=== PATIENT | female | born 1945 ===

== ENCOUNTER 2020-04-19 11:59 | Outpatient (CLI) | payer OTHER | END 2020-04-19 18:00 | disposition home or self-care (01) | LOC: PPH VACUNA 11:59 | PROVIDERS: ATTEND Emergency Medicine Pediatric Emergency Medicine | DX: Z23 Encounter for immunization (principal) ==

== ENCOUNTER 2020-05-10 04:17 | Outpatient (CLI) | payer OTHER | END 2020-05-10 23:50 | disposition home or self-care (01) | LOC: PPH VACUNA 04:17 | PROVIDERS: ATTEND Emergency Medicine Pediatric Emergency Medicine | DX: Z23 Encounter for immunization (principal) ==

== ENCOUNTER → 2020-08-15 06:54 | Outpatient (CLI) | payer OTHER | END | disposition home or self-care (01) | LOC: LAB 06:54 | PROVIDERS: ATTEND Internal Medicine | DX: D64.89 Other specified anemias (principal); Z13.1 Encounter for screening for diabetes mellitus; E78.2 Mixed hyperlipidemia; R97.0 Elevated carcinoembryonic antigen [CEA]; E11.65 Type 2 diabetes mellitus with hyperglycemia; N39.0 Urinary tract infection, site not specified; D11.0 Benign neoplasm of parotid gland; E56.8 Deficiency of other vitamins; E55.9 Vitamin D deficiency, unspecified; K51.511 Left sided colitis with rectal bleeding; M05.741 Rheumatoid arthritis with rheumatoid factor of right hand without organ or systems involvement; M06.89 Other specified rheumatoid arthritis, multiple sites; M32.8 Other forms of systemic lupus erythematosus; D44.0 Neoplasm of uncertain behavior of thyroid gland; D68.8 Other specified coagulation defects; Z12.11 Encounter for screening for malignant neoplasm of colon; E03.8 Other specified hypothyroidism ==

== ENCOUNTER → 2020-08-15 | Outpatient (CLI) | payer OTHER | END | disposition home or self-care (01) | LOC: MAMO-SONO 11:03 | PROVIDERS: ATTEND Internal Medicine | DX: N64.59 Other signs and symptoms in breast (principal); Z12.31 Encounter for screening mammogram for malignant neoplasm of breast; N64.4 Mastodynia ==

== ENCOUNTER 2020-08-24 07:14 | Outpatient (CLI) | payer OTHER | END 2020-08-24 07:19 | disposition home or self-care (01) | LOC: NUCLEAR 07:14 | PROVIDERS: ATTEND Internal Medicine | DX: I20.0 Unstable angina (principal) | CPT/HCPCS: 78452; 93017; A9500 ==

== ENCOUNTER 2021-01-28 08:00 | Outpatient (CLI) | payer OTHER | END 2021-01-28 08:30 | disposition home or self-care (01) | LOC: PPH VACUNA 08:00 | PROVIDERS: ATTEND Emergency Medicine Pediatric Emergency Medicine | DX: Z23 Encounter for immunization (principal) ==

== ENCOUNTER 2021-01-31 08:00 | Outpatient (CLI) | payer OTHER | END 2021-01-31 08:30 | disposition home or self-care (01) | LOC: PPH VACUNA 08:00 | PROVIDERS: ATTEND Emergency Medicine Pediatric Emergency Medicine | DX: Z23 Encounter for immunization (principal) ==

== ENCOUNTER → 2021-02-05 08:07 | Outpatient (CLI) | payer OTHER | END | disposition home or self-care (01) | LOC: LAB 08:07 | PROVIDERS: ATTEND Emergency Medicine | DX: J11.1 Influenza due to unidentified influenza virus with other respiratory manifestations (principal) ==

== ENCOUNTER 2021-08-27 06:41 | Outpatient (CLI) | payer OTHER | END 2021-08-27 06:42 | disposition home or self-care (01) | LOC: LAB 06:41 | DX: D64.89 Other specified anemias (principal); Z13.1 Encounter for screening for diabetes mellitus; E78.2 Mixed hyperlipidemia; R97.0 Elevated carcinoembryonic antigen [CEA]; E11.65 Type 2 diabetes mellitus with hyperglycemia; N39.0 Urinary tract infection, site not specified; E56.8 Deficiency of other vitamins; E55.9 Vitamin D deficiency, unspecified; K51.511 Left sided colitis with rectal bleeding; M05.741 Rheumatoid arthritis with rheumatoid factor of right hand without organ or systems involvement; M06.9 Rheumatoid arthritis, unspecified; D44.0 Neoplasm of uncertain behavior of thyroid gland; D68.8 Other specified coagulation defects; Z12.11 Encounter for screening for malignant neoplasm of colon; E03.9 Hypothyroidism, unspecified ==

== ENCOUNTER 2021-08-29 07:47 | Outpatient (CLI) | payer OTHER | END 2021-08-29 08:06 | disposition home or self-care (01) | LOC: TOM 07:47 | DX: K57.92 Diverticulitis of intestine, part unspecified, without perforation or abscess without bleeding (principal) ==

== ENCOUNTER 2021-12-09 07:37 | Outpatient (CLI) | payer OTHER | END 2021-12-09 07:45 | disposition home or self-care (01) | LOC: LAB 07:37 | DX: D64.89 Other specified anemias (principal); E78.2 Mixed hyperlipidemia; R97.0 Elevated carcinoembryonic antigen [CEA]; E11.65 Type 2 diabetes mellitus with hyperglycemia; N39.0 Urinary tract infection, site not specified; E56.8 Deficiency of other vitamins; E55.9 Vitamin D deficiency, unspecified; K51.511 Left sided colitis with rectal bleeding; M05.741 Rheumatoid arthritis with rheumatoid factor of right hand without organ or systems involvement; M06.9 Rheumatoid arthritis, unspecified; D44.0 Neoplasm of uncertain behavior of thyroid gland; D68.8 Other specified coagulation defects; E03.9 Hypothyroidism, unspecified; Z13.1 Encounter for screening for diabetes mellitus; M32.9 Systemic lupus erythematosus, unspecified; Z12.11 Encounter for screening for malignant neoplasm of colon ==

== ENCOUNTER → 2022-07-14 07:19 | Outpatient (CLI) | payer OTHER | END | disposition home or self-care (01) | LOC: LAB 07:19 | DX: D64.89 Other specified anemias (principal); Z13.220 Encounter for screening for lipoid disorders; R97.0 Elevated carcinoembryonic antigen [CEA]; E11.69 Type 2 diabetes mellitus with other specified complication; N39.0 Urinary tract infection, site not specified; D11.0 Benign neoplasm of parotid gland; E56.8 Deficiency of other vitamins; E55.9 Vitamin D deficiency, unspecified; K51.511 Left sided colitis with rectal bleeding; M05.741 Rheumatoid arthritis with rheumatoid factor of right hand without organ or systems involvement; M32.9 Systemic lupus erythematosus, unspecified; D44.0 Neoplasm of uncertain behavior of thyroid gland; D68.8 Other specified coagulation defects; Z12.11 Encounter for screening for malignant neoplasm of colon; E03.9 Hypothyroidism, unspecified ==